=== PATIENT | female | born 1935 | race Caucasian/White ===

== ENCOUNTER 2019-11-05 01:16 | Observation (INO) ==
[2019-11-05] MEDS ORDERED: Naloxone 0.4 MG/ML INJ IVP PRN (03:26)
[2019-11-05] MEDS ORDERED: 0.9 % Sodium Chloride 1,000 ML IVC SCH (03:30)
[2019-11-05 05:06] LABS: Basophils % 0.3 %; Eosinophils % 0.1 %; Hematocrit 27.5 % (35.3-44.9); Hemoglobin 8.9 g/dL (11.5-15.4); Immature Granulocytes % 0.4 % (0-4); Lymphocytes # 1.1 K/mcL (0.6-4.6); Lymphocytes % 9.6 %; Mean Corpuscular HGB Conc 32.4 g/dL (31.6-35.5); Mean Corpuscular Hemoglobin 31.7 pg (28.0-33.3); Mean Corpuscular Volume 97.9 fL (83.0-100.0); Mean Platelet Volume 10.6 fL (9.4-12.4); Monocytes # 0.6 K/mcL (0.0-1.3); Monocytes % 5.3 %; Neutrophils # 9.7 K/mcL (1.6-8.9); Platelet Count 235 K/mcL (140-400); Red Blood Count 2.81 M/mcL (3.82-4.97); Red Cell Distribution Width 13.9 % (11.5-14.5); Segmented Neutrophils % 84.3 %; White Blood Count 11.5 K/mcL (4.3-11.1)
[2019-11-05 05:11] LABS: Prothrombin Time 11.5 Seconds (9.4-12.1)
[2019-11-05 05:27] LABS: Calcium 9.9 mg/dL (8.6-10.3); Magnesium 1.9 mg/dL (1.6-2.6); Potassium 4.4 mEq/L (3.5-5.1)
[2019-11-05 05:29] LABS: % Iron Saturation 9 % (15-50); Iron 30 mcg/dL (50-170); Transferrin 240 mg/dL (203-362)
[2019-11-05 05:47] LABS: Ferritin 76 ng/mL (10-120)
[2019-11-05 05:53] LABS: Folate 10.1 ng/mL (3.0-16.0)
[2019-11-05] MEDS ORDERED: *HR* HYDROcodone/Acet 5/325 mg TABLET PO PRN (12:03)
[2019-11-05] MEDS ORDERED: Acetaminophen 325 MG TABLET PO PRN (12:03)
[2019-11-05] MEDS: 0.9 % Sodium Chloride 1,000 ML IVC SCH (15:37)
[2019-11-05] MEDS ORDERED: ALPRAZolam 0.25 MG TABLET PO PRN (22:14)
[2019-11-06 02:55] LABS: Calcium 8.7 mg/dL (8.6-10.3); Potassium 4.3 mEq/L (3.5-5.1)
[2019-11-06 03:22] LABS: Bilirubin,Urine Negative (Negative); Blood,Urine Negative (Negative); Clarity,Urine Clear (Clear); Color,Urine Yellow (Yellow); Glucose,Urine (UA) Normal (Normal); Ketones,Urine Negative (Negative); Leukocyte Esterase,Urine Moderate (Negative); Nitrite,Urine Negative (Negative); PH,Urine 5.5 pH Units (5.0-8.0); Protein,Urine Negative (Neg-Trace); Specific Gravity,Urine 1.024 (1.010-1.025); Urobilinogen,Urine Normal (Normal)
[2019-11-06 03:23] LABS: Bacteria,Urine None Seen per hpf (None-Few); Hyaline Casts,Urine None Seen per lpf (None-Few); RBC,Urine 0-3 per hpf (0-3); Squamous Epithelial Cell,Urine Moderate per lpf (None-Few)
[2019-11-06] MEDS: 0.9 % Sodium Chloride 1,000 ML IVC SCH (04:49)
[2019-11-06] MEDS: Cholecalciferol (D-3) 1,000 UNIT (25MCG) TABLET PO SCH (09:34)
[2019-11-06] MEDS: risperiDONE 1 MG TABLET PO SCH ×2 (09:34→20:18)
[2019-11-06] MEDS: Aspirin Enteric Coated 81 MG Tablet PO SCH (09:34)
[2019-11-06] MEDS: amLODIPine 5 MG TABLET PO SCH (09:34)
[2019-11-06] MEDS: *HR* Heparin 5,000 UNIT/ML VIAL SQ SCH (18:06)
[2019-11-06] MEDS: CLEAR EYES NATURAL TEARS 15 ML BOTTLE BOTH EYES SCH ×2 (18:06→20:18)
[2019-11-07] MEDS: *HR* Heparin 5,000 UNIT/ML VIAL SQ SCH ×2 (06:16→18:35)
[2019-11-07] MEDS: risperiDONE 1 MG TABLET PO SCH ×2 (08:42→20:28)
[2019-11-07] MEDS: CLEAR EYES NATURAL TEARS 15 ML BOTTLE BOTH EYES SCH ×4 (08:42→20:37)
[2019-11-07] MEDS: Cholecalciferol (D-3) 1,000 UNIT (25MCG) TABLET PO SCH (08:42)
[2019-11-07] MEDS: amLODIPine 5 MG TABLET PO SCH (08:42)
[2019-11-07] MEDS: Aspirin Enteric Coated 81 MG Tablet PO SCH (08:42)
[2019-11-08] MEDS: *HR* Heparin 5,000 UNIT/ML VIAL SQ SCH (05:08)
[2019-11-08 05:38] LABS: BUN/Creatinine Ratio 19 (6-26); Blood Urea Nitrogen 16 mg/dL (8-23); Calcium 9.2 mg/dL (8.6-10.3); Carbon Dioxide 25 mEq/L (23-29); Chloride 109 mEq/L (98-107); Glucose 104 mg/dL (70-105); Osmolality,Calculated 291 (280-300); Potassium 3.9 mEq/L (3.5-5.1); Sodium 140 mEq/L (136-145); eGFR For African Americans > 60 (> 60); eGFR For Non-African Americans > 60 (> 60)
[2019-11-08] MEDS: Aspirin Enteric Coated 81 MG Tablet PO SCH (08:40)
[2019-11-08] MEDS: risperiDONE 1 MG TABLET PO SCH (08:41)
[2019-11-08] MEDS: amLODIPine 5 MG TABLET PO SCH (08:41)
[2019-11-08] MEDS: CLEAR EYES NATURAL TEARS 15 ML BOTTLE BOTH EYES SCH ×2 (08:41→13:43)
[2019-11-08] MEDS: Cholecalciferol (D-3) 1,000 UNIT (25MCG) TABLET PO SCH (08:41)
[2019-11-08 11:32] VITALS: BP 134/72
== END 2019-11-08 15:30 ==
LOC: 3NENU → SUATTDRO 02:39
PROVIDERS: ADMIT Student in an Organized Health Care Education/Training Program; ATTEND Internal Medicine